=== PATIENT | female | born 1980 ===

== ENCOUNTER 2016-12-31 00:37 | Inpatient (IN) | payer OTHER ==
[2016-12-30 05:41] VITALS: BMI 26.8
--- NOTE | 2016-12-31 01:22 | OBADHP ---
Datetime: 12/31/2016 01:19 Admit Comment, IP Provider: at 40=weks came with ctxs started at 3 m, 1-5 min , 8/10, no vb, lo f,+fmobhx 1 x pmh denies med pnv all nkda psh den soch denies ve /-2 a/p at 40+weeks in labor admit to ld npo/ivf labs pain man gbs propylaxsis aticipate Pelvic Type - PN: Adequate Extremities - PN: Normal Abdomen - PN: Normal Back - PN: Normal Breast - PN: Normal Lungs - PN: Normal Heart - PN: Normal Thyroid - PN: Normal Neurologic - PN: Normal HEENT - PN: Normal General - PN: Normal FHR - Baseline A Provider: 140 Contraction Comments Provider: q1-4 IP Hx Assessment: The History has been Reviewed and is Current Vital Signs Provider: Reviewed; Within Normal Limits IP Chief Complaint: Uterine contractions NICHD Variability Prov Fetus A: Moderate 6-25bpm NICHD Accel Fetus A IP Provider: 15X15 FHR Category Provider Fetus A: Category I Dilatation, Provider: 2 Effacement, Provider: 80 Station, Provider: -2 Genitourinary Exam: Normal DTRs - PN: Normal EGA AdmitDate IP: 40.5 IP Adm Impression: Postterm, intrauterine IP Admit Plan: Admit to unit; Initiate labor protocol Datetime: 12/27/2016 13:54 Presentation-Admit: Vertex Gestation - Est Wks by US: 40.1
[2016-12-31] MEDS: Lactated Ringer's 1,000 ML IV SCH ×2 (01:25→09:10)
[2016-12-31] MEDS ORDERED: Nalbuphine 20 mg/ml Inj (1 ml) IVP PRN (01:30)
[2016-12-31] MEDS ORDERED: Clindamycin 600mg/50ml D5W 50 ML IVPB ONE ×2 (01:52→03:49)
[2016-12-31] MEDS ORDERED: Nalbuphine 20 mg/ml Inj (1 ml) ONE (01:59)
[2016-12-31 02:09] LABS: BASO % 0.2 % (0.0-2.0); EOS % 0.2 % (0.0-4.0); HEMATOCRIT 39.3 % (34.0-47.0); LYMPH # 1.8 K/uL (1.0-4.3); LYMPH % 12.6 % (20.0-40.0); MEAN CELL VOLUME 92.2 fL (81.0-99.0); MEAN CORPUSCULAR HEMOGLOBIN 31.5 pg (27.0-31.0); MEAN CORPUSCULAR HGB CONC 34.2 g/dL (33.0-37.0); MEAN PLATELET VOLUME 11.7 fL (7.2-11.7); MONO # 1.1 K/uL (0.0-0.8); MONO % 7.5 % (0.0-10.0); NRBC % 0.1 % (0.0-2.0); RED CELL DISTRIBUTION WIDTH 14.2 % (11.5-14.5); WHITE BLOOD COUNT 14.5 K/uL (4.8-10.8)
[2016-12-31 02:15] LABS: RBC URINE 1 /hpf (0-3); URINE BACTERIA RARE (<OCC); URINE BILIRUBIN NEGATIVE (NEGATIVE); URINE BLOOD 2+ (NEGATIVE); URINE COLOR Yellow (YELLOW); URINE GLUCOSE (UA) NORMAL (Normal); URINE KETONE 1+ mg/dL (NEGATIVE); URINE LEUKOCYTE ESTERASE 1+ Leu/uL (Negative); URINE PROTEIN NEGATIVE (NEGATIVE); URINE UROBILINOGEN NORMAL mg/dL (0.2-1.0); WBC URINE 11 /hpf (0-5)
[2016-12-31 02:25] LABS: CHLORIDE 96 mmol/L (98-107)
[2016-12-31 02:26] LABS: POTASSIUM 3.4 mmol/L (3.6-5.2); SODIUM 130 mmol/L (132-148)
[2016-12-31 02:28] LABS: AST/SGOT 22 U/L (14-36); BILIRUBIN,TOTAL 0.9 mg/dL (0.2-1.3); CARBON DIOXIDE 20 mmol/L (22-30); GFR AFRICAN-AMERICAN > 60
[2016-12-31 02:29] LABS: ALB/GLOB RATIO 1.2 (1.0-2.1); ALKALINE PHOSPHATASE 187 U/L (38-126); ALT/SGPT 13 U/L (9-52); BLOOD UREA NITROGEN 7 mg/dL (7-17); CALCIUM 8.7 mg/dl (8.6-10.4); GLUCOSE,RANDOM 91 mg/dL (65-105)
[2016-12-31] MEDS ORDERED: Sodium Citrate/Citric Acid 15 ml Sol PO ONE (08:03)
[2016-12-31] MEDS ORDERED: Sodium Citrate/Citric Acid 15 ml Sol ONE ×2 (08:04→17:11)
[2016-12-31] MEDS ORDERED: Bupivacaine 0.125%/FentaNYL 200 ML EPI ONE (09:28)
[2016-12-31] MEDS ORDERED: Oxytocin 30 UNIT 500 ML IV PRN (13:47)
--- NOTE | 2016-12-31 13:48 | OBPN ---
Datetime: 12/31/2016 13:42 IP Progress Impression: Reassuring heart rate IP Procedures: Artificial ROM; Sterile Vag Exam IP Progress Plan: Continue present management Contraction Comments Provider: irregular ctx Gestation - Est Wks by US: 40.5 Weight - Estimated: 3200 Presentation-Admit: Vertex IP Progress Note Comment: S-patient comfortable with epidural O-VSS Afebrile FHT cat1 [place] irregular ctx sve 8/80/-2 A/P Patient in labor.GBS positive.stated on clindamycin by dr romero overnight.slow progress -AROM done.clear fluid.start pitocin -continue to monitor closely -anticipate nvd Vital Signs Provider: Reviewed; Within Normal Limits FHR Category Provider Fetus A: Category I Dilatation, Provider: 8 Effacement, Provider: 80 Station, Provider: -2 Datetime: 12/31/2016 01:19 FHR - Baseline A Provider: 140 NICHD Accel Fetus A IP Provider: 15X15 NICHD Variability Prov Fetus A: Moderate 6-25bpm
[2016-12-31] MEDS ORDERED: Oxytocin 30 UNIT 500 ML IV ONE (14:00)
[2016-12-31] MEDS ORDERED: Bupivacaine HCl 0.25% PF (10 ml) Inj ONE (16:51)
[2016-12-31] MEDS ORDERED: Sodium Bicarbonate (8.4%) 50 Meq Syringe ONE (17:14)
[2016-12-31] MEDS ORDERED: cefOXitin IV 2 gm in Dextrose 50 ML IVPB ONE ×2 (17:14→19:00)
[2016-12-31] MEDS ORDERED: Propofol 10 mg/ml Inj (20 ML) ONE (17:14)
[2016-12-31] MEDS ORDERED: Ketamine 50 mg/ml Inj (10 ml) ONE (17:15)
[2016-12-31] MEDS ORDERED: Succinylcholine Chloride 20 mg/ml Syr (5 ml) IV ONE (17:15)
[2016-12-31] MEDS ORDERED: Naloxone 0.4 mg/ml Inj (Adult) ONE (17:26)
[2016-12-31] MEDS ORDERED: Morphine Monoject Barrel PCA 1mg/ml IV PRN (18:09)
[2016-12-31] MEDS ORDERED: HYDROmorphone 0.5 mg/0.5 ml ISec IVP PRN (18:09)
--- NOTE | 2016-12-31 18:17 | OBDS ---
DELIVERY PERSONNEL Delivery Doctor: Sarah Freeman MD Scrub Nurse: Trinh Ortiz Bread Racker: Mahnaz Reynoso RN Anesthesiologist: Bon MATERNAL INFORMATION Estimated Blood Loss (ml): 800 Provider Comments: primary csection done for nonreassuirng tracing LABOR SUMMARY EDC: 12/26/2016 00:00 No. Babies in Womb: 1 LABOR INFORMATION Group B Beta Strep: Positive (Annotations: 12/02/2016) MEMBRANES Membranes Rupture Method: Artificial (Annotations: by Dr Freeman) Rupture of Membranes: 12/31/2016 13:45 Length of Rupture (hrs): 3.68 Amniotic Fluid Color: Clear Amniotic Fluid Amount: Moderate Amniotic Fluid Odor: Normal STAGES OF LABOR Stage 3 hrs: 0 Stage 3 min: 2 CSECTION DELIVERY Primary Indication: Nonreassuring Status Secondary Indication: Secondary Arrest of Dilatation CSection Urgency: Emergency CSection Incidence: Primary Labor: Labor Elective: N/A CSection Incision: Lower Uterine Transverse Uterine Closure: Double-layer closure BABY A INFORMATION Infant Delivery Date/Time: 12/31/2016 17:26 Method of Delivery: Born in Route : No : N/A Forceps: N/A Vacuum Extraction: N/A Shoulder Dystocia : No SHOULDER DYSTOCIA BABY A Infant Delivery Date/Time: 12/31/2016 17:26 PRESENTATION/POSITION BABY A Presentation: Cephalic Cephalic Presentation: Vertex Vertex Position: Right Occipital Posterior Breech Presentation: N/A PLACENTA INFORMATION BABY A Placenta Delivery Time : 12/31/2016 17:28 Placenta Method of Delivery: Manual Removal Placenta Status: Delivered SCORES BABY A Heart Rate 1 min: Slow, Below 100 bpm Resp Effort 1 min: Slow, Irregular Reflex Irritability 1 min: No Response Muscle Tone 1 min: Flaccid Color 1 min: Body Brownlee, Extremities Blue SCORE 1 MIN: 3 Heart Rate 5 min: >100 bpm Resp Effort 5 min: Good Cry Reflex Irritability 5 min: Cough or Sneeze or Pulls Away Muscle Tone 5 min: Active Motion Color 5 min: Body Brownlee, Extremities Blue SCORE 5 MIN: 9 INFORMATION BABY A Gestational Age at Delivery: 40.5 Gestational Status: Term Outcome : Liveborn Infant Sex: Male IDENTIFICATION/MEDS BABY A ID Band Number: [id number] Sensor Number: [id number] WEIGHT/LENGTH BABY A Birthweight (gms): 3085 Infant Weight (lb): 6 Weight (oz): 13 Length Inches: 19.50 Length cms: 49.5 CORD INFORMATION BABY A No. Cord Vessels: 3 Nuchal Cord : N/A Infant Suction: Mouth; Nose
[2016-12-31] MEDS ORDERED: Morphine 1 mg/ml preservative-free Inj(Duramorph) ONE (18:19)
--- NOTE | 2016-12-31 18:21 | OBPN ---
Datetime: 12/31/2016 18:16 IP Progress Note Comment: late entry for patient seen at 5.05 pm Called to the room for a decel FHR baseline 140s, mod reyna, +decel with shashank in 70s with recovery in between.Patients position w as changed, oxygen given , pitocin turned off.Patient 9 cm dilated with nead -2 station.FECG applied. Discussed with patient about the heart rate and about emergency scection.patient voiced udnerst anding the risks of the cection and desired to proceed.Patient moved back to the OR in the bed.Anesth esia in the room already.
--- NOTE | 2016-12-31 19:33 | OP ---
PROCEDURE DATE: 12/31/2016 PREOPERATIVE DIAGNOSES: 1. Nonreassuring heart tracing. 2. Secondary arrest of dilation. POSTOPERATIVE DIAGNOSES: 1. Nonreassuring heart tracing. 2. Secondary arrest of dilation. SURGERY PERFORMED: Emergency primary low transverse section. SURGEON: Ata Freeman MD FACILITIES LOCATOR: Dr. Suarez. Please note that the procedure required a manager surgical to assist with ent ry into the abdominal cavity and to assist with the delivery of the , as well as to assist with the closure of the abdominal wall tissues. The surgical dental assistant was present and scrubbed for the entire duration of the procedure. ANESTHESIA: General endotracheal. ANESTHESIOLOGIST: Dr. Crockett. COMPLICATIONS: None. ESTIMATED BLOOD LOSS: 800 mL. FINDINGS: A male infant in vertex presentation, right occiput posterior presentation, with Apgars of 3 at 1 minute and 9 at 5 minutes. weight of the infant, 6 pounds 13 ounces. Normal uterus, t ubes, and ovaries bilaterally. PROCEDURE IN DETAIL: After informed consent was obtained, the patient was taken to the operating aris m and placed in dorsal supine position with a leftward tilt. A Ventura catheter was confirmed to be dr santa lutz. The patient was then cleaned and draped in the usual sterile manner. General anesthes ia was then induced and the patient was intubated without any difficulty. A Pfannenstiel skin incisi on was then made with the scalpel and carried down to the underlying layer of the fascia with the hel p of the Bovie. The fascia was then incised in the midline and incision was extended laterally, reji ply with the help of Medrano scissors. The superior aspect of the fascial incision was then grasped wit h Charles clamps, elevated, and the underlying rectus muscles dissected off. Attention was then turne d to the inferior aspect of the fascial incision, which in a similar fashion was grasped with Charles clamps, elevated, and the underlying rectus muscles dissected off. The rectus muscles were then sepa rated in the midline and the peritoneum was entered bluntly. The peritoneum was also stretched blunt ly. The bladder blade was then inserted and vesicouterine peritoneum identified. A transverse incis ion was made over the lower uterine segment with the help of a fresh scalpel, away from the area of t he bladder. The incision was extended bluntly. The 's head was then delivered atraumatically. The body and the shoulders were delivered without any difficulty and the cord was then clamped and cut. The was handed over to the waiting site head. A segment of the cord was taken to andrade mckeon for cord blood pH. The placenta was then manually removed and the uterus was then exteriorized and cleared of all clots and debris. The uterine incision was repaired with 0 Polysorb in a running-loc ked fashion. A second layer of same suture was used to imbricate the first layer and also to obtain hemostasis. Adequate hemostasis was noted from the uterine incision repair site. The uterus was the reafter returned to the patient's abdomen and the gutters were irrigated and suctioned. Once again, the uterus incision repair site was inspected for hemostasis and adequate hemostasis was noted from i t. The peritoneum was thereafter closed with 2-0 Polysorb in a running fashion. The muscle layer wa s reapproximated with 2-0 Polysorb in a continuous manner. The fascia was closed with 0 Vicryl in a running fashion. The subcutaneous tissue was reapproximated with 2-0 Polysorb via interrupted suture s. The skin was then closed with brittnee. The sponge, lap, needle, and instrument count was correct x 3 as reported to me. The patient tolerated the procedure well. The patient was thereafter extuba gianluca, dressing was applied and taken to the recovery room in stable condition. Please note the cord b lood pH returned as 7.07. Ata Freeman MD cc: [id number] TT: 12/31/2016 19:32:07 emre
[2017-01-01] MEDS: Simethicone 80 mg Chewtab PO SCH ×5 (02:02→21:46)
[2017-01-01] MEDS: Lactated Ringer's 1,000 ML IV SCH ×2 (05:57→13:00)
[2017-01-01 07:26] LABS: BASO % 0.1 % (0.0-2.0); EOS % 0.1 % (0.0-4.0); HEMATOCRIT 30.4 % (34.0-47.0); LYMPH # 2.1 K/uL (1.0-4.3); LYMPH % 10.7 % (20.0-40.0); MEAN CELL VOLUME 93.5 fL (81.0-99.0); MEAN CORPUSCULAR HEMOGLOBIN 32.5 pg (27.0-31.0); MEAN CORPUSCULAR HGB CONC 34.8 g/dL (33.0-37.0); MONO % 5.2 % (0.0-10.0); NRBC % 0.1 % (0.0-2.0); RED CELL DISTRIBUTION WIDTH 14.4 % (11.5-14.5); WHITE BLOOD COUNT 19.7 K/uL (4.8-10.8)
[2017-01-01] MEDS: Oxycodone/Acetaminophen 5/325 mg Tab PO PRN ×2 (12:43→21:10)
--- NOTE | 2017-01-02 00:17 | OBPPN ---
Datetime: 01/01/2017 23:04 PP Pain Prov: Within normal limits PP Nausea Prov: Denies PP Flatus Prov: No PP BM Prov: No PP Breasts Prov: Normal PP Heart Prov: Normal PP Lungs Prov: Normal PP Abdomen/Uterus Prov: Normal PP Lochia Prov: Normal PP Vulva/Perineum Prov: Not Done PP CVA Tenderness Prov: Normal PP Extremities Prov: Normal PP C/S Incision Prov: Normal PP Progress Prov: Not Applicable PP Comments Phys Exam Prov: Skin: warm, dry, intact HEENT: full ROM Lungs: CTA bilaterally Cardiac: mild tachycardia; normal S1, S2 Abdomen: softly distended. (+) ABS. Fundus firm and tender (appropriately), 1 FB above umbilicus. Dressing clean and dry. Mild lochia rubra Extremities: venodynes in place All other systems reviewed - as per HPI PP Impression Prov: Normal progression PP Plan Prov: Continue present management PP Progress Note Prov: Patient received in bed in room 453; seen and evaluated 01/01/17 at [facility] 0745 hours. Bottlefeeding exclusively. Denies nausea, vomiting; decreased appetite. Not yet out o f bed. (+) incisional pain 6/10; with CREDENTIALING COORDINATOR, down to 4/10 P.E.: as above. WD in NAD. Awake, alert, oriented to time, person and place. - POD#1 H/H 10.6/30.4. Rh negative; infant is Rh positive Assessment: POD#1, 36 yo P2; S/P primary LTCS for NRFHRT - failed IOL remote from delivery. Afebri le vital signs stable. Anemia noted - patient is asymptomatic; yet, not yet out of bed. Clinically st able. Plan: 1) Encourage ambulation 2) Advance diet as tolerated 3) Start iron supplementation 4) Continue present management Vital Signs Provider PP: Reviewed
[2017-01-02] MEDS: Oxycodone/Acetaminophen 5/325 mg Tab PO PRN ×5 (01:17→21:52)
--- NOTE | 2017-01-02 08:31 | OBPPN ---
Datetime: 01/02/2017 08:28 PP Pain Prov: Within normal limits PP Nausea Prov: Denies PP Flatus Prov: Yes PP BM Prov: No PP Heart Prov: Normal PP Lungs Prov: Normal PP Abdomen/Uterus Prov: Normal PP Lochia Prov: Normal PP Vulva/Perineum Prov: Normal PP CVA Tenderness Prov: Normal PP Extremities Prov: Normal PP C/S Incision Prov: Normal PP Progress Prov: Normal PP Impression Prov: Normal progression PP Plan Prov: Continue present management PP Progress Note Prov: S-patient seen at [facility].reports adequate pain control.Denies nausea, vomiti ng, headache, chest pain, shortness of breath, numbness or tingling in hands and feet O-VSS Afebrile Fundus firm and below umbilicus Incision clean dry and intact extremities no calf tenderness A/P Patient s/p csection pod 2 doing well -continue routine care Vital Signs Provider PP: Reviewed; Within Normal Limits
[2017-01-02] MEDS: Simethicone 80 mg Chewtab PO SCH ×4 (09:06→21:53)
[2017-01-03] MEDS: Oxycodone/Acetaminophen 5/325 mg Tab PO PRN ×2 (02:33→07:24)
[2017-01-03 08:32] VITALS: BP 129/85; PULSE 88; RESP 18; TEMP 97.4; O2SAT 100
[2017-01-03] MEDS: Simethicone 80 mg Chewtab PO SCH (09:25)
--- NOTE | 2017-01-03 10:42 | OBPPN ---
Datetime: 01/03/2017 10:40 PP Pain Prov: Within normal limits PP Pain Prov comment: well controlled PP Nausea Prov: Denies PP Flatus Prov: Yes PP BM Prov: Yes PP Abdomen/Uterus Prov: Normal PP Lochia Prov: Normal PP Extremities Prov: Normal PP C/S Incision Prov: Normal PP Comments Phys Exam Prov: fudus below umblicus ext no edema,no calf ten incision clean and dry PP Impression Prov: Normal progression PP Plan Prov: Discharge PP Progress Note Prov: pt was sen at bed side, pain under control,no n.v, tolerating diet,voiding,mi n lochia, flatus+ pod#3 s/p c/s dc home no sex percocet prn f/u in 2 week Vital Signs Provider PP: Reviewed; Within Normal Limits
--- NOTE | 2017-01-03 10:46 | OBDCSUM ---
Datetime: 01/03/2017 10:44 Discharged to, Provider: Home Follow up at, Provider: friday Discharge Diagnosis, Provider: Term Delivered Follow up in weeks, Provider: clinic Disch Activity Restrictions: No exercising; No lifting; No driving; Minimize walking; Minimize stair -climbing; No sexual activity; Nothing in vagina - [place], tampons, douche Discharge Comment, Provider: no sex percocet prn f/u on friday for brittnee removal Discharge Diagnosis Prov Other: s/p repeat c/s
--- NOTE | 2017-01-03 10:46 | CP.PCM.DIS ---
Provider - Provider Date of Admission: 12/31/16 01:24 Attending physician: Myles Amin MD Time Spent in preparation of Discharge (in minutes): 45 Diagnosis - Discharge Diagnosis (1) S/P Status: Acute Hospital Course - Lab Results Lab Results: Most Recent Lab Values WBC 19.7 K/uL (4.8-10.8) H 01/01/17 06:30 RBC 3.25 Mil/uL (3.80-5.20) L 01/01/17 06:30 Hgb 10.6 g/dL (11.0-16.0) L D 01/01/17 06:30 Hct 30.4 % (34.0-47.0) L 01/01/17 06:30 MCV 93.5 fL (81.0-99.0) 01/01/17 06:30 MCH 32.5 pg (27.0-31.0) H 01/01/17 06:30 MCHC 34.8 g/dL (33.0-37.0) 01/01/17 06:30 RDW 14.4 % (11.5-14.5) 01/01/17 06:30 Plt Count 158 K/uL (130-400) 01/01/17 06:30 MPV 11.0 fL (7.2-11.7) 01/01/17 06:30 Neut % (Auto) 83.9 % (50.0-75.0) H 01/01/17 06:30 Lymph % (Auto) 10.7 % (20.0-40.0) L 01/01/17 06:30 [place] % (Auto) 5.2 % (0.0-10.0) 01/01/17 06:30 Eos % (Auto) 0.1 % (0.0-4.0) 01/01/17 06:30 Baso % (Auto) 0.1 % (0.0-2.0) 01/01/17 06:30 Neut # 16.6 K/uL (1.8-7.0) H 01/01/17 06:30 Lymph # 2.1 K/uL (1.0-4.3) 01/01/17 06:30 [place] # 1.0 K/uL (0.0-0.8) H 01/01/17 06:30 Eos # 0.0 K/uL (0.0-0.7) 01/01/17 06:30 Baso # 0.0 K/uL (0.0-0.2) 01/01/17 06:30 Sodium 130 mmol/L (132-148) L 12/31/16 02:03 Potassium 3.4 mmol/L (3.6-5.2) L 12/31/16 02:03 Chloride 96 mmol/L (98-107) L 12/31/16 02:03 Carbon Dioxide 20 mmol/L (22-30) L 12/31/16 02:03 Anion Gap 17 (10-20) 12/31/16 02:03 BUN 7 mg/dL (7-17) 12/31/16 02:03 Creatinine 0.5 MG/DL (0.7-1.2) L 12/31/16 02:03 Est GFR ( Amer) > 60 12/31/16 02:03 Est GFR (Non-Af Amer) > 60 12/31/16 02:03 Random Glucose 91 mg/dL (65-105) 12/31/16 02:03 Calcium 8.7 mg/dl (8.6-10.4) 12/31/16 02:03 Total Bilirubin 0.9 mg/dL (0.2-1.3) 12/31/16 02:03 AST 22 U/L (14-36) 12/31/16 02:03 ALT 13 U/L (9-52) 12/31/16 02:03 Alkaline Phosphatase 187 U/L (38-126) H D 12/31/16 02:03 Total Protein 7.0 g/dL (6.3-8.3) 12/31/16 02:03 Albumin 3.8 g/dL (3.5-5.0) 12/31/16 02:03 Globulin 3.2 gm/dL (2.2-3.9) 12/31/16 02:03 Albumin/Globulin Ratio 1.2 (1.0-2.1) 12/31/16 02:03 Urine Color Yellow (YELLOW) 12/31/16 02:03 Urine Clarity Clear (Clear) 12/31/16 02:03 Urine pH 6.0 (5.0-8.0) 12/31/16 02:03 Ur Specific Lavinia 1.011 (1.003-1.030) 12/31/16 02:03 Urine Protein Negative mg/dL (NEGATIVE) 12/31/16 02:03 Urine Glucose (UA) Normal mg/dL (Normal) 12/31/16 02:03 Urine Ketones 1+ mg/dL (NEGATIVE) H 12/31/16 02:03 Urine Blood 2+ (NEGATIVE) H 12/31/16 02:03 Urine Nitrate Negative (NEGATIVE) 12/31/16 02:03 Urine Bilirubin Negative (NEGATIVE) 12/31/16 02:03 Urine Urobilinogen Normal mg/dL (0.2-1.0) 12/31/16 02:03 Ur Leukocyte Esterase 1+ Harpal/uL (Negative) H 12/31/16 02:03 Urine WBC (Auto) 11 /hpf (0-5) H 12/31/16 02:03 Urine RBC (Auto) 1 /hpf (0-3) 12/31/16 02:03 Ur Squamous Epith Cells 1 /hpf (0-5) 12/31/16 02:03 Urine Bacteria Rare (<OCC) 12/31/16 02:03 RPR Nonreactive (NONREACTIVE) 12/31/16 02:03 Blood Type A NEGATIVE 01/01/17 06:30 Antibody Screen Negative 01/01/17 06:30 - Hospital Course Hospital Course: 36 year old female who presented to [facility] ER at 40 weeks gestation. Patient came with contractions that started at 4 am, 1-5 min, 8/10 pain, no vaginal bleeding. Patient had non-reassuring heart tracing and secondary arrest of dilation and so she was taken for on 12/31/16. Patient did well post-/op, seen on 01/03/17 in room 453 doing well and has passed flatus, no BM yet, no N/V, no complaints other than mild leg swelling and she has been elevating her legs. Patient will be discharged home today with clear instructions to follow up in the clinic by latest Friday, preferably on Saturday 01/06 in order to have the brittnee removed and she was warned about possible complications if she does not remove them such as infection and dehiscence. Patient verbalized understanding and agreement with the plan. - Date & Time of H&P Date of H&P: 01/03/17 Time of H&P: 10:41 Discharge Exam - Head Exam Head Exam: ATRAUMATIC, NORMOCEPHALIC - Eye Exam Eye Exam: EOMI, PERRL. absent: Conjunctival injection, Scleral icterus - ENT Exam ENT Exam: Mucous Membranes Moist, Normal Oropharynx - Neck Exam Additional comments: soft, supple - Respiratory Exam Respiratory Exam: Clear to PA & Lateral. absent: Rales, Rhonchi, Wheezes - Cardiovascular Exam Cardiovascular Exam: RRR, +S1, +S2. absent: Gallop, Rubs - GI/Abdominal Exam GI & Abdominal Exam: Normal Bowel Sounds, Soft, Tenderness (mild suprapubic over incision, no dehiscence noted, brittnee in place, no erythema or drainage, binder in place). absent: Distended - Neurological Exam Neurological exam: Alert, CN II-XII Intact, Oriented x3 - Skin Skin Exam: Dry, Intact, Warm Discharge Plan - Discharge Medications Prescriptions: Ibuprofen [Motrin] 600 mg PO TID #30 tab - Follow Up Plan Condition: GOOD Disposition: HOME/ ROUTINE Patient education suggested?: Yes Additional Instructions: 1. Follow up in clinic 01/06 or 01/07 latest to have brittnee removed. 2. Maintain hydration. 3. Avoid sex for 6 weeks.
[2017-01-03] MEDS ORDERED: Influenza Virus Vaccine 45 mcg/0.5 ml Syr IM ONE (12:00)
== END 2017-01-03 14:15 | disposition home or self-care (01) | DRG 370 ==
LOC: C.EROB 00:37 → C.4D 01:24 → C.4M 21:30
PROVIDERS: ADMIT Obstetrics & Gynecology; ATTEND Obstetrics & Gynecology
PROC: 10D00Z1 Extraction of Products of Conception, Low, Open Approach (ICD-10-PCS; principal; 2016-12-31)
DX: O76 Abnormality in fetal heart rate and rhythm complicating labor and delivery (principal); O99.02 Anemia complicating childbirth; D64.9 Anemia, unspecified; O62.1 Secondary uterine inertia; Z37.0 Single live birth; O48.0 Post-term pregnancy; Z3A.40 40 weeks gestation of pregnancy; O62.0 Primary inadequate contractions; O99.824 Streptococcus B carrier state complicating childbirth; O09.523 Supervision of elderly multigravida, third trimester

== ENCOUNTER 2017-03-19 13:41 | Emergency (ER) | payer OTHER ==
[2017-03-19 13:41] VITALS: BMI 26.8
[2017-03-19 13:50] VITALS: PULSE 92; O2SAT 99
--- NOTE | 2017-03-19 14:25 | C.PDOC ---
History Of Present Illness 36 y/o female presents to the ED with complains of dysuria and urinary frequency for the past 4 days. Pt denies fever, chills, back pain, abdominal pain or any other complaints. Time Seen by Provider: 03/19/17 14:01 Chief Complaint (Nursing): Abdominal Pain History Per: Patient History/Exam Limitations: no limitations Onset/Duration Of Symptoms: Days Current Symptoms Are (Timing): Still Present Severity: Moderate Radiation Of Pain To:: None Associated Symptoms: Urinary Symptoms. denies: Fever, Chills, Back Pain Exacerbating Factors: None Alleviating Factors: None Recent travel outside of the [place]: No Past Medical History Reviewed: Historical Data, Nursing Documentation, Vital Signs Vital Signs: Last Vital Signs Temp 98.4 F 03/19/17 15:14 Pulse 92 H 03/19/17 15:14 Resp 16 03/19/17 15:14 BP 118/84 03/19/17 15:14 Pulse Ox 99 03/19/17 15:14 - Medical History PMH: No Chronic Diseases Surgical History: - [facility] Procedures EXTRACTION OF POC, LOW CERVICAL, OPEN APPROACH (12/31/16) Family History: States: Unknown Family Hx - Social History Hx Tobacco Use: No Hx Alcohol Use: Yes Hx Substance Use: No - Immunization History Hx Tetanus Toxoid Vaccination: No Hx Influenza Vaccination: No Hx Pneumococcal Vaccination: No Review Of Systems Except As Marked, All Systems Reviewed And Found Negative. Constitutional: Negative for: Fever, Chills Gastrointestinal: Negative for: Vomiting, Abdominal Pain Genitourinary: Positive for: Dysuria, Frequency Musculoskeletal: Negative for: Back Pain Physical Exam - Physical Exam Appears: Non-toxic, No Acute Distress Skin: Warm, Dry, No Rash Head: Atraumatic, Normacephalic Neck: Normal, Normal ROM, Supple Chest: Symmetrical Cardiovascular: Rhythm Regular, No Murmur Respiratory: Normal Breath Sounds, No Rales, No Rhonchi, No Wheezing Gastrointestinal/Abdominal: Soft, Tenderness (mild suprapubic), No Guarding, No Rebound Extremity: Normal ROM Extremity: Bilateral: Atraumatic Neurological/Psych: Oriented x3, Normal Speech Gait: Steady ED Course And Treatment O2 Sat by Pulse Oximetry: 99 (room air) Pulse Ox Interpretation: Normal Disposition Counseled Patient/Family Regarding: Studies Performed, Diagnosis, Need For Followup, Rx Given - Disposition Disposition: HOME/ ROUTINE Disposition Time: 15:00 Condition: GOOD Additional Instructions: Follow up with clinic or PMD Prescriptions: Naproxen [Naprosyn] 1 tab PO BID PRN #25 tab PRN Reason: Pain Nitrofurantoin Macrocrystals [Macrobid] 1 cap PO BID #14 cap Instructions: Urinary Tract Infection in Women (ED), Dysuria (ED) - POA Present On Arrival: None - Clinical Impression Clinical Impression: Urinary tract infection - PA / COMPUTER SYSTEMS CONSULTANT / Resident Statement MD/DO has reviewed & agrees with the documentation as recorded. - Scribe Statement The provider has reviewed the documentation as recorded by the Macho Johns All medical record entries made by the Macho were at my direction and personally dictated by me. I have reviewed the chart and agree that the record accurately reflects my personal performance of the history, physical exam, medical decision making, and the department course for this patient. I have also personally directed, reviewed, and agree with the discharge instructions and disposition.
[2017-03-19 14:42] LABS: RBC URINE 36 /hpf (0-3); URINE BACTERIA RARE (<OCC); URINE BILIRUBIN NEGATIVE (NEGATIVE); URINE COLOR Yellow (YELLOW); URINE GLUCOSE (UA) 1+ mg/dL (Normal); URINE KETONE TRACE mg/dL (NEGATIVE); URINE LEUKOCYTE ESTERASE 2+ Leu/uL (Negative); URINE PROTEIN 2+ mg/dL (NEGATIVE); WBC URINE 339 /hpf (0-5)
[2017-03-19 14:43] LABS: URINE BLOOD 1+ (NEGATIVE)
[2017-03-19 15:15] VITALS: BP 118/84; RESP 16; TEMP 98.4
== END 2017-03-19 15:15 | disposition home or self-care (01) ==
LOC: C.ER 13:41
DX: N39.0 Urinary tract infection, site not specified (principal); B96.20 Unspecified Escherichia coli [E. coli] as the cause of diseases classified elsewhere

== ENCOUNTER 2017-12-11 10:42 | Emergency (ER) | payer OTHER ==
[2017-12-11 10:42] VITALS: BMI 26.8
--- NOTE | 2017-12-11 11:57 | C.PDOC ---
History Of Present Illness 37 yo female 23 wks , no significant PMHx, come in for evaluation of cold sx for past 5 days associated with nasal congestion, dry cough. Pt reports , was unable to sleep last night due to dry cough. Otherwise, pt denies high fever, chills, headache, dizziness, drooling, neck pain, rash, CP, SOB, dyspnea , diaphoresis, palpitation, abd. pain, V/D, denies vaginal bleeding or discharges, back pain, UTI sx. Pt admits, (+) care, no complication during current , denies any active complaints related to at present time. Ambulate to ED fo revaluation, not in any apparent distress. Time Seen by Provider: 12/11/17 11:35 Chief Complaint (Nursing): Flu-like Symptoms History Per: Patient Onset/Duration Of Symptoms: Gradual Past Medical History Reviewed: Historical Data, Nursing Documentation, Vital Signs Vital Signs: Last Vital Signs Temp 98.5 F 12/11/17 10:48 Pulse 114 H 12/11/17 10:48 Resp 12 12/11/17 10:48 BP 107/71 12/11/17 10:48 Pulse Ox 99 12/11/17 11:57 - Medical History PMH: No Chronic Diseases Surgical History: - [facility] Procedures EXTRACTION OF POC, LOW CERVICAL, OPEN APPROACH (12/31/16) Family History: States: Unknown Family Hx - Social History Hx Tobacco Use: No Hx Alcohol Use: No Hx Substance Use: No - Immunization History Hx Tetanus Toxoid Vaccination: No Hx Influenza Vaccination: No Hx Pneumococcal Vaccination: No Review Of Systems Except As Marked, All Systems Reviewed And Found Negative. Constitutional: Negative for: Fever, Chills ENT: Positive for: Nose Discharge, Nose Congestion. Negative for: Ear Pain, Ear Discharge, Throat Pain, Throat Swelling Cardiovascular: Negative for: Chest Pain, Palpitations, Orthopnea, Light Headedness Respiratory: Positive for: Cough. Negative for: Shortness of Breath, Wheezing Gastrointestinal: Negative for: Nausea, Vomiting, Abdominal Pain, Diarrhea Genitourinary: Negative for: Dysuria, Frequency, Vaginal Bleeding Skin: Negative for: Rash Neurological: Negative for: Altered Mental Status, Dizziness Physical Exam - Physical Exam Appears: Well, Non-toxic, No Acute Distress Skin: Normal Color, Warm, Dry, No Rash Head: Normacephalic Eye(s): bilateral: PERRL Ear(s): Bilateral: Normal Nose: No Flaring, Discharge (SCANT CLEAR RHINORRHEA B/L) Oral Mucosa: Moist, No Drooling Tongue: Normal Appearing Lips: Normal Appearing Throat: No Erythema, No Drooling Neck: Trachea Midline, Supple Cardiovascular: Rhythm Regular, No Murmur, No JVD Respiratory: No Decreased Breath Sounds, No Accessory Muscle Use, No Stridor, No Wheezing Gastrointestinal/Abdominal: Soft, Tenderness, No Distention, No Guarding, Other (Gravid) Extremity: Normal ROM, No Pedal Edema, No Deformity, No Swelling Neurological/Psych: Oriented x3, Normal Speech ED Course And Treatment O2 Sat by Pulse Oximetry: 99 Pulse Ox Interpretation: Normal Progress Note: On re-evaluation, pt is afebrile, hemodynamicaly stable. non- toxic. PUlseOx 99% RA. ENT: no acute findings. neck: Supple, (-) meningeal sign. Lungs: CTA B/L, BS equal B/L. Abd: gravid. NO pedal edema. Pt has clinical findings c/w acute bronchitis, . Pt advised. ref. to f/u swith PMD in 2-3 days for re-eval. return to ED if anyw orsening or new changes. Disposition Counseled Patient/Family Regarding: Diagnosis, Need For Followup, Rx Given - Disposition Referrals: Bailey Nails MD [Medical Doctor] - Disposition: HOME/ ROUTINE Disposition Time: 12:20 Condition: STABLE Additional Instructions: ENCOURAGE FLUIDS TAKE MEDICATION PRESCRIBED FOLLOW UP WITH PMD IN 2 -3 DAYS FOR RE-EVALUATION. RETURN TO ED IF ANY WORSENING OR NEW CHANGES. Prescriptions: Azithromycin [Zithromax] 250 mg PO DAILY #4 tab Prednisone [Deltasone] 20 mg PO DAILY #3 tablet Instructions: Acute Bronchitis Forms: [employer] (Congolese) - Clinical Impression Clinical Impression: Acute bronchitis
[2017-12-11 12:40] VITALS: BP 101/69; PULSE 98; RESP 18; TEMP 98.3; O2SAT 100
== END 2017-12-11 12:40 | disposition home or self-care (01) ==
LOC: C.ER 10:42
DX: O26.892 Other specified pregnancy related conditions, second trimester (principal); Z3A.23 23 weeks gestation of pregnancy; J20.9 Acute bronchitis, unspecified

== ENCOUNTER 2018-03-26 10:48 | Inpatient (IN) | payer OTHER ==
[2018-03-26 12:20] LABS: SQUAMOUS EPITHIAL 3 /hpf (0-5); URINE BACTERIA RARE (<OCC); URINE BILIRUBIN NEGATIVE (NEGATIVE); URINE CLARITY Clear (Clear); URINE COLOR Yellow (YELLOW); URINE GLUCOSE (UA) NORMAL (Normal); URINE LEUKOCYTE ESTERASE NEG Leu/uL (Negative); URINE PROTEIN NEGATIVE (NEGATIVE); URINE UROBILINOGEN NORMAL mg/dL (0.2-1.0)
[2018-03-26 12:22] LABS: URINE BLOOD 2+ (NEGATIVE)
[2018-03-26 12:25] LABS: BASO % 0.4 % (0.0-2.0); EOS % 0.4 % (0.0-4.0); HEMOGLOBIN 12.1 g/dL (11.0-16.0); LYMPH # 1.9 K/uL (1.0-4.3); LYMPH % 16.1 % (20.0-40.0); MEAN CELL VOLUME 95.2 fL (81.0-99.0); MEAN CORPUSCULAR HEMOGLOBIN 32.9 pg (27.0-31.0); MEAN CORPUSCULAR HGB CONC 34.5 g/dL (33.0-37.0); MONO % 8.4 % (0.0-10.0); NEUT # 8.6 K/uL (1.8-7.0); NEUT % 74.7 % (50.0-75.0); NRBC % 0.1 % (0.0-2.0); RBC 3.68 Mil/uL (3.80-5.20); RED CELL DISTRIBUTION WIDTH 14.6 % (11.5-14.5); WHITE BLOOD COUNT 11.5 K/uL (4.8-10.8)
[2018-03-26 12:58] LABS: ALBUMIN 3.6 g/dL (3.5-5.0); ALT/SGPT 13 U/L (9-52); AST/SGOT 19 U/L (14-36); BLOOD UREA NITROGEN 4 mg/dL (7-17); CALCIUM 8.8 mg/dl (8.6-10.4); GFR AFRICAN-AMERICAN > 60; GFR NON-AFRICAN AMERICAN > 60
[2018-03-26] MEDS ORDERED: cefOXitin IV 2 gm in Saline 2 GM/50 ML BAG IVPB ONE (14:37)
[2018-03-26] MEDS ORDERED: Sodium Citrate/Citric Acid 15 ml Sol ONE (14:37)
[2018-03-26] MEDS ORDERED: Oxytocin 20 units in LR 2,000 ML IV ONE (14:38)
[2018-03-26] MEDS ORDERED: cefOXitin IV 2 gm in Dextrose 2 GM/50 ML BAG IVPB ONE (15:00)
[2018-03-26] MEDS ORDERED: Sodium Citrate/Citric Acid 15 ml Sol PO ONE (15:00)
[2018-03-26] MEDS ORDERED: Clindamycin 600mg/50ml NS 600 MG/50 ML BAG IVPB ONE (15:00)
[2018-03-26] MEDS ORDERED: Clindamycin 600mg/50ml D5W 600 MG/50 ML VIAL IVPB STA (15:08)
[2018-03-26] MEDS ORDERED: Morphine 1 mg/ml preservative-free Inj(Duramorph) ONE (15:41)
[2018-03-26] MEDS ORDERED: DiphenhydrAMINE 50 mg/ml Inj IVP PRN (16:17)
[2018-03-26] MEDS ORDERED: Oxytocin 10 Units/ml Inj ONE (16:17)
[2018-03-26] MEDS ORDERED: HYDROmorphone 0.5 mg/0.5 ml ISec IVP PRN (16:19)
--- NOTE | 2018-03-26 16:59 | PCM.SURG1 ---
Surgeon's Initial Post Op Note - Surgeon's Notes Surgeon: Cassidy Vines MD Warp Dyeing Tender: Beck Brizuela MD Type of Anesthesia: Spinal Pre-Operative Diagnosis: Previous cesearean esction, contracitng, n labor, vaginal bleeidng, temr intraturine Operative Findings: live male infant cehpaic persentation, agpasr 9,9 pediatrica presnet ofr dleivyer. keloid on skin incsin. normla uterus, tubes and ovareis appear normal. Dr Beck Brizuela was surigcal assistan and presnet for entire case and essential in gainign etnry, retraction, expouer, holidng bladder blade, closing all layers Post-Operative Diagnosis: same as above Operation Performed: Repeat low transverse cesearen esction Specimen/Specimens Removed: placenta Estimated Blood Loss: EBL {In ML}: 800 Blood Products Given: N/A Drains Used: No Drains Post-Op Condition: Good Date of Surgery/Procedure: 03/26/18 Time of Surgery/Procedure: 15:00
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
--- NOTE | 2018-03-26 17:48 | OBDS ---
DELIVERY PERSONNEL Delivery Doctor: Wilson Vines MD Scrub Nurse: Trinh Ortiz OBT Electrical And Instrumentation Manager: Billy Thomas RN Anesthesiologist: Pam Dale MD MATERNAL INFORMATION Delivery Anesthesia: Spinal Medications in Delivery: pitocin 20 Estimated Blood Loss (ml): 800 Placenta Cultured: Yes Maternal Complications: None Provider Comments: pt delived by repat cxs live male infnat LABOR SUMMARY EDC: 04/09/2018 00:00 No. Babies in Womb: 1 Attempted: No Labor Anesthesia: None LABOR INFORMATION Onset of Labor: 03/26/2018 14:00 Group B Beta Strep: Done, Result Unknown Antibiotics # of Doses: 1 Antibiotics Time of Last Dose: 1600 Steroids Given: None Reason Steroids Not Administered: Not Applicable MEMBRANES Membranes Rupture Method: Artificial Rupture of Membranes: 03/26/2018 16:11 Length of Rupture (hrs): 0.00 Amniotic Fluid Color: Clear Amniotic Fluid Amount: Moderate Amniotic Fluid Odor: Normal STAGES OF LABOR Stage 3 hrs: 0 Stage 3 min: 1 Total Time in Labor hrs: 2 Total Time in Labor min: 12 VAGINAL DELIVERY Episiotomy: None Laceration Extension: N/A Laceration Type: None CSECTION DELIVERY Primary Indication: Repeat Elective Secondary Indication: N/A CSection Urgency: Emergency CSection Incidence: Repeat Labor: No Labor Elective: Elective CSection Incision: Lower Uterine Transverse BABY A INFORMATION Infant Delivery Date/Time: 03/26/2018 16:11 Method of Delivery: Born in Route : No : N/A Forceps: N/A Vacuum Extraction: N/A Shoulder Dystocia : No SHOULDER DYSTOCIA BABY A Infant Delivery Date/Time: 03/26/2018 16:11 PRESENTATION/POSITION BABY A Presentation: Cephalic Cephalic Presentation: Vertex Breech Presentation: N/A PLACENTA INFORMATION BABY A Placenta Delivery Time : 03/26/2018 16:12 Placenta Method of Delivery: Manual Removal Placenta Status: Delivered SCORES BABY A Heart Rate 1 min: >100 bpm Resp Effort 1 min: Good Cry Reflex Irritability 1 min: Cough or Sneeze or Pulls Away Muscle Tone 1 min: Active Motion Color 1 min: Body [place], Extremities Blue SCORE 1 MIN: 9 Heart Rate 5 min: >100 bpm Resp Effort 5 min: Good Cry Reflex Irritability 5 min: Cough or Sneeze or Pulls Away Muscle Tone 5 min: Active Motion Color 5 min: Body [place], Extremities Blue SCORE 5 MIN: 9 INFANT INFORMATION BABY A Gestational Age at Delivery: 38.0 Gestational Status: Term Infant Outcome : Liveborn Infant Condition : Stable Infant Sex: Male IDENTIFICATION/MEDS BABY A ID Band Number: [id number] ID Band Location: Left Leg; Left Arm Sensor Applied: Yes Sensor Number: [id number] Sensor Location : Cord Clamp WEIGHT/LENGTH BABY A Birthweight (gms): 2775 Infant Weight (lb): 6 Weight (oz): 2 Infant Length Inches: 18.00 Infant Length cms: 45.7 CORD INFORMATION BABY A No. Cord Vessels: 3 Nuchal Cord : N/A Cord Blood Taken: Yes Suction: Mouth; Nose ASSESSMENT BABY A Infant Complications: None Physical Findings at Delivery: Within Normal Limits Infant Respirations: Appears Normal Front Clerk/ALS Called : No Infant Care By: dr lin Transferred To: Remains with Mother
[2018-03-26] MEDS: Simethicone 80 mg Chewtab PO SCH (21:20)
--- NOTE | 2018-03-27 06:47 | OP ---
PROCEDURE DATE: 03/26/2018 PREOPERATIVE DIAGNOSES: Previous section, contraction in labor, vaginal bleeding, term intrauterine . POSTOPERATIVE DIAGNOSES: Previous section, contraction in labor, vaginal bleeding, term intrauterine . OPERATIVE FINDINGS: Live male , cephalic presentation, Apgars 9 and 9. Stone Breaker present for delivery. Keloid over skin incision prior to incision made. Normal uterus, tubes, and ovaries bilaterally. Dr. Beck Brizuela was the surgical services tech who was present for the entire case and was essential in gaining entry, retraction, exposure, holding the bladder blade, closing all layers. OPERATION PERFORMED: Repeat low transverse section. SURGEON: Cassidy Vines MD MAC OPERATOR: Beck Brizuela MD TYPE OF ANESTHESIA: Spinal. SPECIMEN REMOVED: Placenta. ESTIMATED BLOOD LOSS: 800 mL. BLOOD PRODUCTS: None. COMPLICATIONS: None. DRAINS: None. DESCRIPTION OF PROCEDURE: The patient was taken to the operating room where she was given spinal anesthesia. Once it was found to be adequate, she was positioned on the operating table in dorsal supine position. The patient was then prepped and draped in the usual sterile fashion. A time-out confirmed correct patient and correct procedure. The patient was given preoperative prophylactic antibiotics. A Pfannenstiel skin incision was made with a scalpel and carried down to the underlying layer of the fascia with the Bovie. The fascia was incised in the midline. The incision was extended laterally with the Bovie. The superior aspect of the fascial incision was grasped with Charles clamps, and the underlying rectus muscles were dissected off with Medrano scissors. Attention was then turned to the inferior aspect of the incision in a similar fashion. It was grasped with Allis and Charles clamps, and the underlying rectus muscles were dissected off bluntly. The rectus muscles were then in the midline using two Allis clamps in the midline. Clear space was noted. Peritoneum identified and entered into clear space. The incision was extended bluntly laterally and superiorly until good visualization of the bladder. The lower end of the Letha was then inserted, and the lower uterine segment was incised in a transverse fashion. The uterine incision was extended laterally bluntly. The surgeon's hand entered to the uterine cavity. The infant's head was delivered atraumatically followed by delivery of the shoulders and followed by delivery of the body. Both oral and nasal passages of the baby were bulb suctioned. The umbilical cord was clamped and cut. The baby was handed off to the awaiting clark driver. Cord blood and cord gases were collected and sent x2. The placenta was then delivered manually. The uterus was exteriorized and was cleared off all clots and debris. The uterine incision was repaired with 0-Vicryl in a running continuous locked fashion. A second layer of the same suture was used to close the uterus in a running imbricating manner. There were normal tubes and ovaries bilaterally. The uterus was then returned to the abdomen. The paracolic gutters were cleared of all clots and debris. The peritoneum was reapproximated with 2-0 chromic in a running continuous fashion. The rectus was reapproximated and closed with 2-0 chromic in an interrupted manner. The fascia was reapproximated and closed with 0 Vicryl in a running continuous fashion. The subcutaneous layers were closed with 2-0 plain in interrupted manner. The skin was reapproximated and closed with brittnee. At the end of the procedure, all needles, sponge, and instrument counts were noted as correct x2. The patient tolerated the procedure well and was transferred to the recovery room in stable condition. Cassidy Vines MD
[2018-03-27 08:21] LABS: BASO % 0.2 % (0.0-2.0); EOS % 0.2 % (0.0-4.0); HEMOGLOBIN 10.8 g/dL (11.0-16.0); LYMPH # 2.2 K/uL (1.0-4.3); LYMPH % 11.8 % (20.0-40.0); MEAN CELL VOLUME 95.9 fL (81.0-99.0); MEAN CORPUSCULAR HEMOGLOBIN 33.4 pg (27.0-31.0); MEAN CORPUSCULAR HGB CONC 34.8 g/dL (33.0-37.0); MEAN PLATELET VOLUME 10.5 fL (7.2-11.7); MONO # 1.2 K/uL (0.0-0.8); MONO % 6.3 % (0.0-10.0); NEUT # 14.9 K/uL (1.8-7.0); NEUT % 81.5 % (50.0-75.0); RBC 3.23 Mil/uL (3.80-5.20); RED CELL DISTRIBUTION WIDTH 14.7 % (11.5-14.5)
[2018-03-27 08:23] LABS: WHITE BLOOD COUNT 18.3 K/uL (4.8-10.8)
[2018-03-27 08:28] LABS: ALBUMIN 2.9 g/dL (3.5-5.0); ALT/SGPT < 6 U/L (9-52); AST/SGOT 30 U/L (14-36); BLOOD UREA NITROGEN 3 mg/dL (7-17); CALCIUM 8.4 mg/dl (8.6-10.4); GFR AFRICAN-AMERICAN > 60; GFR NON-AFRICAN AMERICAN > 60
--- NOTE | 2018-03-27 08:55 | OBPPN ---
Datetime: 03/27/2018 08:52 PP Pain Prov: Within normal limits PP Nausea Prov: Denies PP Flatus Prov: No PP BM Prov: No PP Abdomen/Uterus Prov: Normal PP Lochia Prov: Normal PP Extremities Prov: Normal PP C/S Incision Prov: Normal PP Comments Phys Exam Prov: No calf tenderness Incision- Dressing intact Uterus firm PP Impression Prov: Normal progression PP Plan Prov: Continue present management PP Progress Note Prov: Dressing still intact- clean- Needs removal today. Continue post op care IP PP Procedures: None Vital Signs Provider PP: Reviewed; Within Normal Limits
[2018-03-27] MEDS: Oxycodone/Acetaminophen 5/325 mg Tab PO PRN ×4 (09:37→21:30)
[2018-03-27] MEDS: Simethicone 80 mg Chewtab PO SCH ×5 (09:38→21:30)
[2018-03-27] MEDS ORDERED: Bisacodyl 5mg EC Tab PO ONE (16:55)
[2018-03-28] MEDS: Oxycodone/Acetaminophen 5/325 mg Tab PO PRN ×5 (02:30→23:09)
[2018-03-28] MEDS: Simethicone 80 mg Chewtab PO SCH ×4 (09:11→21:47)
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
[2018-03-28 11:55] LABS: HEMOGLOBIN 10.5 g/dL (11.0-16.0); MEAN CELL VOLUME 96.9 fL (81.0-99.0); MEAN CORPUSCULAR HEMOGLOBIN 33.4 pg (27.0-31.0); MEAN CORPUSCULAR HGB CONC 34.4 g/dL (33.0-37.0); MEAN PLATELET VOLUME 10.3 fL (7.2-11.7); RBC 3.15 Mil/uL (3.80-5.20); WHITE BLOOD COUNT 15.1 K/uL (4.8-10.8)
[2018-03-29] MEDS: Oxycodone/Acetaminophen 5/325 mg Tab PO PRN (06:37)
[2018-03-29 07:56] VITALS: BP 94/61; TEMP 97.8; O2SAT 100
[2018-03-29] MEDS: Simethicone 80 mg Chewtab PO SCH (09:43)
--- NOTE | 2018-03-29 11:29 | OBDCSUM ---
Datetime: 03/29/2018 07:52 Discharged to, Provider: Home Follow up at, Provider: [facility] Disch Instr Activity: Normal activity; May Shower Disch Instr Diet: Regular Discharge Diet restrict Prov: none Discharge Instructions, Provider: Routine instructions given Discharge Diagnosis, Provider: Term Delivered Discharge Time: 03/29/2018 11:30 Follow up in weeks, Provider: for staple removal Disch Referrals: None Contraception discussed, Prov: Yes Disch Activity Restrictions: No driving; No sexual activity; Nothing in vagina - [place], tampon s, douche Discharge Diagnosis Prov Other: Status post repeat section Advanced maternal age Acute blood loss anemia Contraception counseling Contraception after Delivery: IUD; Tubal Ligation
--- NOTE | 2018-03-29 11:52 | OBPPN ---
Datetime: 03/29/2018 11:28 PP Pain Prov: Within normal limits PP Nausea Prov: Denies PP Flatus Prov: Yes PP BM Prov: Yes PP Breasts Prov: Not Done PP Heart Prov: Normal PP Lungs Prov: Normal PP Abdomen/Uterus Prov: Normal PP Lochia Prov: Normal PP Vulva/Perineum Prov: Not Done PP CVA Tenderness Prov: Normal PP Extremities Prov: Normal PP C/S Incision Prov: Normal PP Progress Prov: Not Applicable PP Comments Phys Exam Prov: Abdomen: Soft, Non distended. Fundus firm, mobile, non tender, 2FB below umbilicus. Minimal lochia rubra. Incision with brittnee - clean, dry and intact. Ecchymotic area - in ferior to incision on the right, approx 6 x 4 cm. Non tender, no induration. All other systems reviewed and are negative PP Impression Prov: Normal progression PP Plan Prov: Discharge PP Progress Note Prov: Patient received in room 452, ambulating; dressed and ready to go home. Incis ional pain improved: pain scale before meds = 5/10, after meds 2/10 (now). (+) BM - "I feel so much b duyen"; (+) flatus. Denies nausea, vomiting. Ambulating and voiding without difficulty. P.E.: as above. WD in NAD. Awake, alert, oriented to time, person and place. Pleasant and cooperat dorian - POD#3 15.1>10.5/30.6<185. Rh(-) Assessment: POD#3, 37 y.o., S/P C/S #2. Afebrile, vital signs stable. Normal GI and functions. WBC trending down. Contraception options discussed: patient most interested in permanent sterilizatio n; then, IUD. Acute blood loss anemia noted - H/H stable. Patient is asymptomatic and hemodynamically stable. Patient is clinically stable. Plan: 1) Discharge home 2) See discharge instructions Vital Signs Provider PP: Reviewed; Within Normal Limits
[2018-03-29 17:01] VITALS: PULSE 70; RESP 18
== END 2018-03-29 13:00 | disposition home or self-care (01) | DRG 370 ==
LOC: C.EROB 10:48 → C.4D 11:05 → C.4M 18:50
PROVIDERS: ADMIT Obstetrics & Gynecology; ATTEND Obstetrics & Gynecology
PROC: 10D00Z1 Extraction of Products of Conception, Low, Open Approach (ICD-10-PCS; principal; 2018-03-26)
DX: O34.211 Maternal care for low transverse scar from previous cesarean delivery (principal); O75.82 Onset (spontaneous) of labor after 37 completed weeks of gestation but before 39 completed weeks gestation, with delivery by (planned) cesarean section; O46.90 Antepartum hemorrhage, unspecified, unspecified trimester; D62 Acute posthemorrhagic anemia; O99.02 Anemia complicating childbirth; Z3A.38 38 weeks gestation of pregnancy; Z37.0 Single live birth